=== PATIENT | female | born 1950 | race Caucasian/White ===

== ENCOUNTER 2018-06-29 10:52 | Outpatient (CLI) | payer MEDICARE, BC ==
--- NOTE | 2018-06-29 15:28 | MRI ---
MRI LUMBAR SPINE: HISTORY: Left-sided sciatica extending into the left leg for three weeks. TECHNIQUE: Noncontrast enhanced MR images of the lumbar spine obtained. FINDINGS: T12-L1: Unremarkable. L1-L2: Unremarkable. L2-L3: Disk desiccation is seen. There is bilateral facet and ligamentum flavum hypertrophy. There is some disk desiccation seen. There is a broad-based disk bulge. This results in mild central and lateral recess stenosis. There is mild bilateral neural foraminal narrowing seen. L3-L4: Disk space height loss is seen. There is a broad-based disk protrusion extending into the ce ntral and neural foramen. There is bilateral facet hypertrophy also present. Ligamentum flavum hype rtrophy is seen. This results in moderate to severe central and lateral recess stenosis. Mild to mo derate bilateral neural foraminal narrowing is also seen. L4-L5: Disk desiccation is seen. There is a broad-based disk protrusion with bilateral facet and li gamentum flavum hypertrophy. This results in severe central L4-L5 spinal stenosis with severe centra l spinal stenosis as well. The neural foramen demonstrate mild narrowing. L5-S1: Disk desiccation is seen. There is a broad-based disk bulge with bilateral facet hypertrophy . Mild central spinal stenosis is seen. There is severe left sided neural foraminal narrowing. The right neural foramen is patent. IMPRESSION: 1. Left L5-S1 neural foraminal narrowing with central and lateral recess stenosis at L4-L5 and, to a lesser degree, at L3-L4 spinal levels. POS: ALL
== END 2018-06-29 10:53 | disposition home or self-care (01) ==
LOC: TBSIIMAG 10:52
PROVIDERS: ATTEND Neurological Surgery
DX: M54.16 Radiculopathy, lumbar region (principal); M99.83 Other biomechanical lesions of lumbar region; M48.061 Spinal stenosis, lumbar region without neurogenic claudication
CPT/HCPCS: 72148